=== PATIENT | female | born 1960 | race Hispanic/Latino ===

== ENCOUNTER 2017-03-12 06:41 | Day surgery (SDC) | payer OTHER ==
--- NOTE | 2017-03-07 13:56 | Anesthesia Consultation ---
Anesthesia Consult and Med Hx Date of service: 03/07/17 - Airway Anesthetic Teeth Evaluation: Good ROM Head & Neck: Adequate Mental/Hyoid Distance: Adequate Mallampati Class: Class II Intubation Access Assessment: Probably Good - Pulmonary Exam CTA: Yes - Cardiac Exam Cardiac Exam: RRR - Pre-Operative Health Status ASA Pre-Surgery Classification: ASA2 Proposed Anesthetic Plan: General - Pulmonary Hx Smoking: No Hx Sleep Apnea: Yes (DX SLEEP APNEA,HAS NOT RECEIVED CPAP YET) - Cardiovascular System Hx Hypertension: No - Other Systems Hx Cancer: No
[2017-03-07 14:03] LABS: Basophils % (Auto) 0.7 % (0.0-1.8); Eosinophils % (Auto) 2.4 % (0.0-4.3); Hematocrit 40.2 % (30.3-42.9); Hemoglobin 13.7 gm/dl (10.1-14.3); Mean Corpuscular HGB Conc 34 % (30-34); Mean Corpuscular Hemoglobin 29 pg (28-32); Mean Corpuscular Volume 87 fl (79-97); Platelet Count 144 K/mm3 (140-440); Red Blood Count 4.65 M/mm3 (3.65-5.03); Red Cell Distribution Width 13.7 % (13.2-15.2); White Blood Count 5.3 K/mm3 (4.5-11.0)
[2017-03-07 14:14] LABS: INR 0.98 (0.87-1.13)
[2017-03-07 14:15] LABS: Partial Thromboplastin Time 30.2 Sec. (24.2-36.6)
[2017-03-07 14:19] LABS: Alanine Aminotransferase 14 units/L (7-56); Albumin 3.8 g/dL (3.9-5); Albumin/Globulin Ratio 1.1 %; Alkaline Phosphatase 102 units/L (35-129); Anion Gap 17 mmol/L; BUN/Creatinine Ratio 10; Blood Urea Nitrogen 6 mg/dL (7-17); Carbon Dioxide 21 mmol/L (22-30); Chloride 104.2 mmol/L (98-107); Glucose 83 mg/dL (65-100); Potassium 3.7 mmol/L (3.6-5.0); Sodium 138 mmol/L (137-145); Total Protein 7.2 g/dL (6.3-8.2)
[~2017-03-12 06:41] MED LIST: ANCEF/STERILE WATER 2 GM/20 ML IV NR
[2017-03-12] MEDS ORDERED: VERSED IV NR (07:00)
[2017-03-12] MEDS ORDERED: PEPCID PO NR (07:00)
[2017-03-12] MEDS ORDERED: LACTATED RINGERS 1,000 ML IV SCH (07:00)
[2017-03-12] MEDS ORDERED: ADRENALIN IV ONE ×2 (07:09→13:37)
[2017-03-12] MEDS ORDERED: XYLOCAINE 1% 20 mL ONE (07:10)
[2017-03-12] MEDS ORDERED: MARCAINE 0.25% INFILTRATI ONE ×2 (07:10→13:20)
--- NOTE | 2017-03-12 09:59 | Anesthesia Day of Surgery ---
Anesthesia Day of Surgery - Day of Surgery Patient Examined: Yes Patient H&P Reviewed: Yes Patient is NPO: Yes
[2017-03-12] MEDS ORDERED: XYLOCAINE MPF 2% ONE (11:17)
[2017-03-12] MEDS ORDERED: DILAUDID ONE (11:17)
[2017-03-12] MEDS ORDERED: DIPRIVAN 10 MG/ML IV ONE (11:17)
[2017-03-12] MEDS ORDERED: DECADRON ONE (13:20)
[2017-03-12] MEDS ORDERED: XYLOCAINE 1% 20 mL INFILTRATI ONE (13:20)
[2017-03-12] MEDS ORDERED: ROBINUL ONE (13:27)
[2017-03-12] MEDS ORDERED: ZOFRAN ONE (13:30)
[2017-03-12] MEDS ORDERED: LACTATED RINGERS 1,000 ML ONE (13:34)
[2017-03-12] MEDS ORDERED: NACL 0.9% IR ONE (13:37)
--- NOTE | 2017-03-12 14:45 | Procedure Note ---
Date of procedure: 03/12/17 Pre-op diagnosis: left knee medial and lateral meniscus tear Post-op diagnosis: same Procedure: Left knee arthroscopy with partial medial and lateral menisectomy Anesthesia: TEENA Surgeon: JANE ESQUEDA III Er Medical Technician: KARLA ROSALES Estimated blood loss: minimal Pathology: none Condition: stable Disposition: PACU
[2017-03-12] MEDS ORDERED: PERCOCET 5/325 PO ONE (15:25)
[2017-03-12] MEDS ORDERED: PERCOCET 5/325 ONE (15:31)
[2017-03-12 17:13] VITALS: BP 132/93
--- NOTE | 2017-03-12 21:30 | Post Anesthesia Evaluation ---
- Post Anesthesia Evaluation Patient Participated: Yes Airway Patent: Yes Stable Respiratory Function: Yes Nausea/Vomiting: No Temp > 96.8F: Yes Pain Manageable: Yes Adequeate Hydration: Yes Anesthesia Complications: No Block Receding Appropriately: Not Applicable Patient on Ventilator: No
--- NOTE | 2017-03-14 13:50 | Operative Report ---
PREOPERATIVE DIAGNOSES: Left knee medial meniscus tear, possible lateral meniscus tear. POSTOPERATIVE DIAGNOSES: Left knee medial meniscus tear, possible lateral meniscus tear. PROCEDURE: Left knee arthroscopy with partial medial and lateral meniscectomy. SURGEON: Ron Chavarria III, M.D. [employer]LL OPERATOR: Dr. Nathanael Cannon. DESCRIPTION OF PROCEDURE: The patient was seen in the preop holding area, where the consent was reviewed and the left knee was marked by the surgeon. All the patient's questions were answered and then the patient was taken back to the operating room theater by the motel operator. The patient was placed on the operating room table in the supine position and placed under general anesthesia by the motel operator. A 50 mL of Marcaine and lidocaine cocktail was injected into the knee through a superior lateral injection location. This was done in a sterile technique and then the left knee was prepped and draped in the usual manner with chlorhexidine solution. Standard left knee arthroscopy was done using 11 blade to make the anterolateral portal, trocar was placed in the suprapatellar pouch and a standard diagnostic scope was performed of the suprapatellar pouch as well as the medial and lateral gutter. There were no loose bodies or abnormalities found. The camera was then placed in the medial compartment. A spinal needle was used to localize the correct location for the anterior medial portal and once this was found coming and above the medial meniscus an 11 blade was placed creating the anteromedial portal. Medial compartment was viewed. The patient had grade 2 and 3 changes of her medial femoral condyle as well as her medial tibial plateau. There was a complex degenerative tear of the body and posterior horn of her medial meniscus. This was identified and removed using meniscal bitters as well as a shaver and was taken back to a stable rim. ACL and PCL were reviewed. The patient had a chronic ACL insufficiency and the remaining fibers were not functioning as a normal ACL would. These were left alone. The patient was placed in a [id number]-ay-aopv position and the scope was placed in the lateral compartment and a blunt probe was used to probe the lateral meniscus where an under-sided tear of the posterior horn was identified. This undersurface tear was removed with a meniscal shaver and probed again and was deemed to be stable. Scope was then put back into the suprapatellar pouch. There were no loose bodies found. Pictures were taken of the inferior surface of the patella as well as the trochlear groove. 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 Knee was drained of all remaining fluid. Portal incisions were closed with 3-0 Monocryl in a subcuticular fashion and covered with Steri-Strips, Adaptic, 4 x 4's, ABDs, and an Clay wrap. The patient was moved from the operating room table to the hospital bed and taken to PACU in stable condition. Sponge and instrument count were correct at the end of the case. There were no complications. Blood loss was minimal. The patient will follow up in clinic in 1 week's time. The patient is weightbearing as tolerated with crutches and to wean off as she progresses. JOB# [id number] REHAN/ANTHONY
== END 2017-03-12 16:35 | disposition home or self-care (01) ==
LOC: OR 06:41
PROVIDERS: ATTEND Orthopaedic Surgery Sports Medicine
DX: M23.222 Derangement of posterior horn of medial meniscus due to old tear or injury, left knee (principal); M23.252 Derangement of posterior horn of lateral meniscus due to old tear or injury, left knee; F32.9 Major depressive disorder, single episode, unspecified; F41.9 Anxiety disorder, unspecified; G47.33 Obstructive sleep apnea (adult) (pediatric); Z68.33 Body mass index [BMI] 33.0-33.9, adult; Z79.01 Long term (current) use of anticoagulants; Z88.8 Allergy status to other drugs, medicaments and biological substances; Z88.6 Allergy status to analgesic agent; Z98.84 Bariatric surgery status; Z88.1 Allergy status to other antibiotic agents; Z98.890 Other specified postprocedural states
CPT/HCPCS: 29880; 36415; 80053; 85025; 85610; 85730; 93005; 93010; A4217; J0171; J0690; J1100; J1170; J2250; J2405; J2704; J7120